=== PATIENT | male | born 1955 | race Caucasian/White ===

== ENCOUNTER 2017-12-27 13:09 | Emergency (ER) | payer SELFPAY ==
[~2017-12-27] VITALS: Ht 172.7 cm; Wt 70.0 kg
[2017-12-27 14:44] VITALS: BP 130/74; PULSE 102; RESP 15; TEMP 97.8; O2SAT 97
--- NOTE | 2017-12-27 17:58 | PD ---
HPI Chief Complaint: Psychiatric Symptoms Time Seen by Provider: 17:29 Travel History International Travel<30 days: No Contact w/Intl Traveler<30days: No Traveled to known affect area: No History of Present Illness HPI 62 yo male here for evaluation of voluntary psych eval. History of alcoholism per patient. Drinks every day. No medical issues. Takes no meds. Brought here by police for voluntary psych eval and per patient possible detox from alcohol. He has plan to end his life by cutting himself. No drugs, only alcohol per him. No pain at this time. No homicidal ideation. No hallucinatiions. Last drink this am. Symptoms worsening for the past few days due to increased stress and alcohol use. [facility] Social History Alcohol Use: Yes Tobacco Use: No Substance Use: No Allergies-Medications (Allergen,Severity, Reaction): Coded Allergies: No Known Allergies (Unverified , 12/27/17) Review of Systems Except as stated in HPI: all other systems reviewed are Neg Physical Exam Narrative GENERAL: SKIN: Warm and dry. HEAD: Atraumatic. Normocephalic. EYES: Pupils equal and round. No scleral icterus. No injection or drainage. ENT: No nasal bleeding or discharge. Mucous membranes pink and moist. tongue is midline. No uvula deviation. NECK: Trachea midline. No JVD. CARDIOVASCULAR: Regular rate and rhythm. No murmurs, S3, S4. RESPIRATORY: No accessory muscle use. Clear to auscultation. Breath sounds equal bilaterally. GASTROINTESTINAL: Abdomen soft, non-tender, nondistended. Hepatic and splenic margins not palpable. MUSCULOSKELETAL: Extremities without clubbing, cyanosis, or edema. No obvious deformities. Full ROM of the upper and lower extremities bilaterally. 2+ pulses. NEUROLOGICAL: Awake and alert. No obvious cranial nerve deficits. Motor grossly within normal limits. Five out of 5 muscle strength in the arms and legs. Normal speech. PSYCHIATRIC: Appropriate mood and affect; insight and judgment normal. Data Data Last Documented VS Vital Signs Date Time Temp Pulse Resp B/P (MAP) Pulse Ox O2 Delivery O2 Flow Rate FiO2 12/27/17 14:44 97.8 102 15 130/74 (92) 97 Orders Orders Complete Blood Count With Diff (12/27/17 16:14) Comprehensive Metabolic Panel (12/27/17 16:14) Psych Screen (6/11/18 16:14) Drug Screen, Random Urine (12/27/17 16:14) Alcohol (Ethanol) (12/27/17 16:14) Electrocardiogram (12/27/17 18:15) Ckmb (Isoenzyme) Profile (12/27/17 18:15) Troponin I (12/27/17 18:15) Aspirin (Aspirin) (12/27/17 18:15) Labs Laboratory Tests Test 12/27/17 16:35 12/27/17 18:03 Urine Opiates Screen NEG Urine Barbiturates Screen NEG Urine Amphetamines Screen NEG Urine Benzodiazepines Screen NEG Urine Cocaine Screen NEG Urine Cannabinoids Screen NEG White Blood Count 6.9 TH/MM3 Red Blood Count 4.32 MIL/MM3 Hemoglobin 14.7 GM/DL Hematocrit 41.9 % Mean Corpuscular Volume 96.9 FL Mean Corpuscular Hemoglobin 34.0 PG Mean Corpuscular Hemoglobin Concent 35.1 % Red Cell Distribution Width 14.4 % Platelet Count 396 TH/MM3 Mean Platelet Volume 6.8 FL Neutrophils (%) (Auto) 67.8 % Lymphocytes (%) (Auto) 23.6 % Monocytes (%) (Auto) 7.7 % Eosinophils (%) (Auto) 0.0 % Basophils (%) (Auto) 0.9 % Neutrophils # (Auto) 4.7 TH/MM3 Lymphocytes # (Auto) 1.6 TH/MM3 Monocytes # (Auto) 0.5 TH/MM3 Eosinophils # (Auto) 0.0 TH/MM3 Basophils # (Auto) 0.1 TH/MM3 CBC Comment DIFF FINAL Differential Comment Blood Urea Nitrogen 27 MG/DL Creatinine 1.03 MG/DL Random Glucose 227 MG/DL Total Protein 7.3 GM/DL Albumin 3.5 GM/DL Calcium Level 8.5 MG/DL Alkaline Phosphatase 88 U/L Aspartate Amino Transf (AST/SGOT) 34 U/L Alanine Aminotransferase (ALT/SGPT) 29 U/L Total Bilirubin 0.7 MG/DL Sodium Level 132 MEQ/L Potassium Level 3.6 MEQ/L Chloride Level 95 MEQ/L Carbon Dioxide Level 20.7 MEQ/L Anion Gap 16 MEQ/L Estimat Glomerular Filtration Rate 73 ML/MIN Ethyl Alcohol Level 205 MG/DL MDM Medical Decision Making Medical Screen Exam Complete: Yes Emergency Medical Condition: Yes Medical Record Reviewed: Yes Differential Diagnosis depression vs suicidal vs alcoholism vs mood disorder vs atypical chest pain vs chest pain vs ACS Narrative Course 62 yo male here for evaluation of psych. Patient was properly examined and found to have no signs of acute disease. Labs drawn. patient will be medically cleared for voluntary psych evaluation pending labs. When I was evaluating the patient near the patient's location he called me to tell me that he had some left-sided chest pain that had just started up a couple of minutes ago. He states that he sharp. Per patient is holding his left side. Does not radiate. He rates it at 7 out of 10. I immediately order an aspirin as well as an EKG and labs. Patient was moved to a medical bed for further evaluation. Case was signed out to my attending Dr. De Leon pending disposition and plan. Diagnosis Primary Impression: Mood disorder Additional Impression: Alcoholism Tommy Jones Dec 27, 2017 17:58
[2017-12-27] MEDS ORDERED: ASPIRIN 325 MG TAB PO ONE (18:15)
[2017-12-27 18:50] LABS: ALBUMIN 3.5 GM/DL (3.4-5.0); ALT (GPT) 29 U/L (12-78); AST (GOT) 34 U/L (15-37); BICARBONATE 20.7 MEQ/L (21.0-32.0); BLOOD UREA NITROGEN 27 MG/DL (7-18); CALCIUM 8.5 MG/DL (8.5-10.1); CHLORIDE 95 MEQ/L (98-107); CREATININE 1.03 MG/DL (0.60-1.30); GLOMERULAR FILTRATION RATE 73 ML/MIN (>89); GLUCOSE,RANDOM 227 MG/DL (74-106); SODIUM (NA) 132 MEQ/L (136-145)
[2017-12-27 18:51] LABS: AUTOMATED NEUTROPHIL # 4.7 TH/MM3 (1.8-7.7); BASOPHIL # 0.1 TH/MM3 (0-0.2); BASOPHIL % 0.9 % (0.0-2.0); HEMATOCRIT 41.9 % (39.0-51.0); HEMOGLOBIN 14.7 GM/DL (13.0-17.0); LYMPH % 23.6 % (9.0-44.0); LYMPHOCYTE # 1.6 TH/MM3 (1.0-4.8); MEAN CELL VOLUME 96.9 FL (80.0-100.0); MEAN CORPUSCULAR HGB CONC 35.1 % (32.0-36.0); MEAN PLATELET VOLUME 6.8 FL (7.0-11.0); MONO % 7.7 % (0.0-8.0); MONOCYTE # 0.5 TH/MM3 (0-0.9); NEUT % 67.8 % (16.0-70.0); PLATELET COUNT 396 TH/MM3 (150-450); RED BLOOD COUNT 4.32 MIL/MM3 (4.50-5.90); RED CELL DISTRIBUTION WIDTH 14.4 % (11.6-17.2); WHITE BLOOD COUNT 6.9 TH/MM3 (4.0-11.0)
[2017-12-27 18:52] LABS: ALKALINE PHOSPHATASE 88 U/L (45-117); TOTAL BILIRUBIN ADULT 0.7 MG/DL (0.2-1.0); TOTAL PROTEIN 7.3 GM/DL (6.4-8.2)
[2017-12-27 19:20] VITALS: BP 146/71; PULSE 79; RESP 16; O2SAT 98
[2017-12-27 20:21] LABS: TROPONIN I LESS THAN 0.02 NG/ML (0.02-0.05)
--- NOTE | 2017-12-27 20:58 | PD ---
Physical Exam Narrative I, Dr. De Leon, have reviewed the advance practice practitioner's documentation and am in agreement, met with the patient face to face, made the diagnosis, and the medical decision making was done by me. *My assessment and Findings: Patient is a 62 year old male who comes in complaining of feeling depressed and suicidal. He says "my heart hurts." When asked what this means, he just says he has some shortness of breath occasionally and he doesn't want to live anymore. He denies chest pain specifically. He is a smoker and an alcoholic. Exam shows wheezing throughout both lungs. Data Data Last Documented VS Vital Signs Date Time Temp Pulse Resp B/P (MAP) Pulse Ox O2 Delivery O2 Flow Rate FiO2 12/27/17 19:20 79 16 146/71 (96) 98 Room Air 12/27/17 14:44 97.8 Orders Orders Complete Blood Count With Diff (12/27/17 16:14) Comprehensive Metabolic Panel (12/27/17 16:14) Psych Screen (12/27/17 16:14) Drug Screen, Random Urine (12/27/17 16:14) Alcohol (Ethanol) (12/27/17 16:14) Electrocardiogram (12/27/17 18:15) Ckmb (Isoenzyme) Profile (12/27/17 18:15) Troponin I (12/27/17 18:15) Aspirin (Aspirin) (12/27/17 18:15) Diet Regular Basic (12/27/17 Dinner) Albuterol-Ipratropium Neb (Duoneb Neb) (12/27/17 21:00) Labs Laboratory Tests Test 12/27/17 16:35 12/27/17 18:03 Urine Opiates Screen NEG Urine Barbiturates Screen NEG Urine Amphetamines Screen NEG Urine Benzodiazepines Screen NEG Urine Cocaine Screen NEG Urine Cannabinoids Screen NEG White Blood Count 6.9 TH/MM3 Red Blood Count 4.32 MIL/MM3 Hemoglobin 14.7 GM/DL Hematocrit 41.9 % Mean Corpuscular Volume 96.9 FL Mean Corpuscular Hemoglobin 34.0 PG Mean Corpuscular Hemoglobin Concent 35.1 % Red Cell Distribution Width 14.4 % Platelet Count 396 TH/MM3 Mean Platelet Volume 6.8 FL Neutrophils (%) (Auto) 67.8 % Lymphocytes (%) (Auto) 23.6 % Monocytes (%) (Auto) 7.7 % Eosinophils (%) (Auto) 0.0 % Basophils (%) (Auto) 0.9 % Neutrophils # (Auto) 4.7 TH/MM3 Lymphocytes # (Auto) 1.6 TH/MM3 Monocytes # (Auto) 0.5 TH/MM3 Eosinophils # (Auto) 0.0 TH/MM3 Basophils # (Auto) 0.1 TH/MM3 CBC Comment DIFF FINAL Differential Comment Blood Urea Nitrogen 27 MG/DL Creatinine 1.03 MG/DL Random Glucose 227 MG/DL Total Protein 7.3 GM/DL Albumin 3.5 GM/DL Calcium Level 8.5 MG/DL Alkaline Phosphatase 88 U/L Aspartate Amino Transf (AST/SGOT) 34 U/L Alanine Aminotransferase (ALT/SGPT) 29 U/L Total Bilirubin 0.7 MG/DL Sodium Level 132 MEQ/L Potassium Level 3.6 MEQ/L Chloride Level 95 MEQ/L Carbon Dioxide Level 20.7 MEQ/L Anion Gap 16 MEQ/L Estimat Glomerular Filtration Rate 73 ML/MIN Total Creatine Kinase 76 U/L Troponin I LESS THAN 0.02 NG/ML Ethyl Alcohol Level 205 MG/DL [facility] Supervised Visit with TERI: Yes Narrative Course Labs sent show no acute abnormalities, other than elevated alcohol level. Delta troponin performed. Given a duoneb. Medically cleared for psychiatric evaluation. Diagnosis Primary Impression: Mood disorder Additional Impression: Alcoholism Ngozi De Leon MD Dec 27, 2017 20:58
[2017-12-27] MEDS ORDERED: RESP: ALBUTEROL 2.5 MG/IPRATROPIUM 0.5 MG NEB (SCH) NEB ONE (21:00)
--- NOTE | 2017-12-27 21:43 | EKG ---
Date Performed: 12/27/2017 Time Performed: 17:27:38 PTAGE: 62 years EKG: Baseline artifact present Sinus rhythm Abnormal R wave progression. There is artifact in lead V2 and V3 clinical correlation suggested. NO PREVIOUS TRACING DOCTOR: Yogi Shukla Interpretating Date/Time 12/27/2017 21:41:54
[2017-12-28 03:55] VITALS: BP 137/67; PULSE 72; RESP 16; O2SAT 98
[2017-12-28 14:02] VITALS: BP 129/68; PULSE 71; RESP 17; O2SAT 98
[2017-12-28 17:31] VITALS: BP_SYST 125; BP_SYST 129; BP_DIAS 68; BP_DIAS 70; PULSE 71; PULSE 85; RESP 17; RESP 18; O2SAT 98
--- NOTE | 2017-12-28 18:39 | PD ---
Physical Exam Date Seen by Provider: Dec 28, 2017 Time Seen by Provider: 18:37 Narrative For full history and physical examination please see previous providers notes. Data Data Last Documented VS Vital Signs Date Time Temp Pulse Resp B/P (MAP) Pulse Ox O2 Delivery O2 Flow Rate FiO2 12/28/17 17:31 85 18 125/70 (88) 98 Room Air 12/27/17 14:44 97.8 Orders Orders Complete Blood Count With Diff (12/27/17 16:14) Comprehensive Metabolic Panel (12/27/17 16:14) Psych Screen (12/27/17 16:14) Drug Screen, Random Urine (12/27/17 16:14) Alcohol (Ethanol) (12/27/17 16:14) Electrocardiogram (12/27/17 18:15) Ckmb (Isoenzyme) Profile (12/27/17 18:15) Troponin I (12/27/17 18:15) Aspirin (Aspirin) (12/27/17 18:15) Diet Regular Basic (12/27/17 Dinner) Albuterol-Ipratropium Neb (Duoneb Neb) (12/27/17 21:00) Troponin I (12/27/17 20:58) Diet Regular Basic (12/28/17 Dinner) Ed Discharge Order (12/28/17 18:32) Labs Laboratory Tests Test 12/27/17 16:35 12/27/17 18:03 12/27/17 21:15 Urine Opiates Screen NEG Urine Barbiturates Screen NEG Urine Amphetamines Screen NEG Urine Benzodiazepines Screen NEG Urine Cocaine Screen NEG Urine Cannabinoids Screen NEG White Blood Count 6.9 TH/MM3 Red Blood Count 4.32 MIL/MM3 Hemoglobin 14.7 GM/DL Hematocrit 41.9 % Mean Corpuscular Volume 96.9 FL Mean Corpuscular Hemoglobin 34.0 PG Mean Corpuscular Hemoglobin Concent 35.1 % Red Cell Distribution Width 14.4 % Platelet Count 396 TH/MM3 Mean Platelet Volume 6.8 FL Neutrophils (%) (Auto) 67.8 % Lymphocytes (%) (Auto) 23.6 % Monocytes (%) (Auto) 7.7 % Eosinophils (%) (Auto) 0.0 % Basophils (%) (Auto) 0.9 % Neutrophils # (Auto) 4.7 TH/MM3 Lymphocytes # (Auto) 1.6 TH/MM3 Monocytes # (Auto) 0.5 TH/MM3 Eosinophils # (Auto) 0.0 TH/MM3 Basophils # (Auto) 0.1 TH/MM3 CBC Comment DIFF FINAL Differential Comment Blood Urea Nitrogen 27 MG/DL Creatinine 1.03 MG/DL Random Glucose 227 MG/DL Total Protein 7.3 GM/DL Albumin 3.5 GM/DL Calcium Level 8.5 MG/DL Alkaline Phosphatase 88 U/L Aspartate Amino Transf (AST/SGOT) 34 U/L Alanine Aminotransferase (ALT/SGPT) 29 U/L Total Bilirubin 0.7 MG/DL Sodium Level 132 MEQ/L Potassium Level 3.6 MEQ/L Chloride Level 95 MEQ/L Carbon Dioxide Level 20.7 MEQ/L Anion Gap 16 MEQ/L Estimat Glomerular Filtration Rate 73 ML/MIN Total Creatine Kinase 76 U/L Troponin I LESS THAN 0.02 NG/ML LESS THAN 0.02 NG/ML Ethyl Alcohol Level 205 MG/DL [facility] Medical Record Reviewed: Yes Supervised Visit with TERI: No Narrative Course Patient was seen and evaluated, medically cleared. He was then seen and evaluated by the psychiatric nurse practitioner. Alonzo act was lifted. Patient was discharged home. Diagnosis Primary Impression: Mood disorder Additional Impression: Alcoholism Referrals: Primary Care Physician Domenico [facility] Patient Instructions: General Instructions, Mood Disorders (ED) Departure Forms: Tests/Procedures Additional Instruction: Follow-up with your primary doctor Follow-up with [facility] Avoid excessive alcohol intake or avoid alcohol altogether Return to emergency department for any new or worsening symptoms Med/Other Pt SpecificInfo: No Change to Meds Disposition: 01 DISCHARGE HOME Condition: Stable Dara Moy [facility] Dec 28, 2017 18:39
--- NOTE | 2017-12-28 18:42 | PD ---
History of Present Illness Chief Complaint: Psychiatric Symptoms Time Seen by Provider: 18:15 Travel History International Travel<30 Days: No Contact w/Intl Traveler<30days: No Known affected area: No Legal Status Legal Status: Voluntary History of Present Illness: History of Present Illness HPI 62 year old, , homeless male with history of alcohol abuse here on a voluntary status requesting psychiatric evaluation. ED documentation is reviewed and included here in this report. " Brought here by police for voluntary psych eval and per patient" possible detox from alcohol. He has plan to end his life by cutting himself." Near the completion of his medical clearance the patient reported chest pain. He was medically cleared. BAL on arrival was 205. EMR is reviewed. One previous ED visit in July 2005 under a BA for suicidal ideation in context of alcohol use. Patient is seen in Main ED. He is clinically sober. He is alert, oriented, engaging and cooperative. He states" I feel better. I was drinking a lot". Reports that he has an increase in his use of alcohol to approximately 2 bottles a week for the last 4 weeks. Patient became homeless 3 days ago after he was evicted from his apartment for getting into conflicts with his landlord. He would not elaborate as to what these conflicts were. The patient at this time does not present any evidence of unstable mental illness, no significant clinical evidence of any depression or anxiety. Does not appear internally preoccupied. I can elicit no delusions or paranoia. There is no suicidal or homicidal ideation, intent or plan. The patient does report that he is homeless and concern as to where he would go. He has asked me to help him contact his sister to see if they would be able to allow him to stay with them. In terms of psychiatric history the patient denies any previous psychiatric history. No history of previous suicide attempt. PFSH Past Medical History Immunizations Current: No Tetanus Vaccination: Unknown Influenza Vaccination: No Psychiatric History Psychiatric History Hx Psychiatric Treatment: NONE. One previous Rosado act in context of alcohol intoxication. No previous history of suicide attempt. History of Inpatient Treatment: No Guns or firearms in home: No Social History Patient was born in [place]. 20 years. No children. 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 He has become homeless 3 days ago. Hx Alcohol Use: Yes Hx Tobacco Use: No Hx Substance Use: Yes Substance Use Type: Alcohol Other Substances Used: HAS TRIED TO QUIT "COLD TURKEY" BEFORE. CAN NOT SAY HOW LONG STAYED SOBER Hx of Substance Use Treatment: Yes (Patient has utilized AA. Has had 5 years of sobriety in the past. Recent relapse) Family Psychiatric History Negative Allergies-Medications (Allergen,Severity, Reaction): Coded Allergies: No Known Allergies (Unverified , 12/27/17) Review of Systems Psychiatric: DENIES: Anxiety, Confusion, Mood changes, Depression, Hallucinations, Agitation, Suicidal Ideation, Homicidal Ideation, Delusions Except as stated in HPI: all other systems reviewed are Neg Mental Status Examination Appearance: Appropriate (Dressed in T-shirt and shorts. Maintaining basic hygiene.) Consciousness: Alert Orientation: x4 Motor Activity: Normal gait Speech: Unremarkable Language: Adequate Fund of Knowledge: Adequate Attention and Concentration: Adequate Memory: Unremarkable Mood: Appropriate Affect: Appropriate Thought Process & Associations: Intact, Logical, Goal directed Thought Content: Appropriate Hallucination Type: None Delusion Type: None Suicidal Ideation: No Suicidal Plan: No Suicidal Intention: No Homicidal Ideation: No Homicidal Plan: No Homicidal Intention: No Insight: Fair Judgment: Adequate MDM Medical Decision Making Medical Record Reviewed: Yes Assessment/Plan 62 year old, , homeless male with history of alcohol abuse here on a voluntary status requesting psychiatric evaluation. Patient initially requested detox services as well as reporting suicidal ideation. Once the patient was in the process of being medically cleared he reported that he was having chest pain. Patient was allowed to sober up clinically in secure environment. This evaluation is completed once he is clinically sober. There is no evidence of any unstable mental illness, no significant depression, no anxiety, no alexsandra, no hypomania, no psychosis, no suicidal or homicidal ideation. The patient has had recent relapse of his alcohol use. He is willing to return back to . His main concern now is halfway. He has asked assistance in contacting his sister who lives in the area. I have informed them that the hospital is unable to provide housing at this time. I have encouraged him to seek services of AA. Discussed [facility] for detox services. Patient is psychiatric clear for discharge from the ED. Orders Orders Diet Regular Basic (12/27/17 Dinner) Albuterol-Ipratropium Neb (Duoneb Neb) (12/27/17 21:00) Troponin I (12/27/17 20:58) Diet Regular Basic (12/28/17 Dinner) Ed Discharge Order (12/28/17 18:32) Results Vital Signs Date Time Temp Pulse Resp B/P (MAP) Pulse Ox O2 Delivery O2 Flow Rate FiO2 12/28/17 17:31 85 18 125/70 (88) 98 Room Air 12/28/17 14:02 71 17 129/68 (88) 98 Room Air 12/28/17 03:55 72 16 137/67 (90) 98 Room Air 12/27/17 19:20 79 16 146/71 (96) 98 Room Air Laboratory Tests Test 12/27/17 21:15 Troponin I LESS THAN 0.02 Diagnosis Primary Impression: alcohol abuse with intoxication Psychiatrically Cleared: Yes Departure Forms: Tests/Procedures Patient Instructions: General Instructions, Mood Disorders (ED) Med/ Other Pt Specific Info: No Meds Exist/No RX given Disposition: 01 DISCHARGE HOME Condition: Stable GodoyPancho mckeonadarsh Looneya Acosta VALENTE Dec 28, 2017 18:42
== END 2017-12-28 18:41 | disposition home or self-care (01) ==
LOC: NEDAMB 13:09 → NEPD 12-28 18:41
DX: F10.229 Alcohol dependence with intoxication, unspecified (principal); R07.9 Chest pain, unspecified; Y90.7 Blood alcohol level of 200-239 mg/100 ml; Z59.0 Homelessness
CPT/HCPCS: 80053; 80307; 82550; 84484; 85025; 93005; 94664; 99284